=== PATIENT | male | born 1950 | race Caucasian/White ===

== ENCOUNTER 2017-07-02 15:11 | Inpatient (IN) | payer OTHER, MEDICARE ==
[~2017-07-02] VITALS: Ht 167.6 cm; Wt 63.6 kg
[2017-07-02 15:10] VITALS: BP 116/66
[2017-07-02] MEDS ORDERED: hydrALAzine 20 MG/ML, 1ML IVPush PRN (17:00)
[2017-07-02] MEDS ORDERED: TEMAZEPAM 15 MG CAPSULE PO PRN (17:00)
[2017-07-02] MEDS ORDERED: ACETAMINOPHEN 325 MG TABLET PO PRN ×2 (17:00→18:30)
[2017-07-02] MEDS ORDERED: morphine SULFATE 10 MG/ML, 1ML IVPush PRN (17:00)
[2017-07-02] MEDS ORDERED: ONDANSETRON 2MG/ML, 2ML IVPush PRN (17:00)
[2017-07-02] MEDS ORDERED: HYDROcodone/APAP 5/325 TABLET PO PRN (17:00)
[2017-07-02] MEDS ORDERED: CHLORHEXIDINE MOUTHWASH 15 ML UDC MM PRN (17:30)
[2017-07-02 18:00] LABS: HEMATOCRIT 45.2 % (39.2-51.8); HEMOGLOBIN 15.6 g/dL (13.7-18.0); WHITE BLOOD COUNT 6.2 x10^3/uL (3.4-10)
[2017-07-02 18:03] LABS: ASPARTATE AMINO TRANSFERASE 22 U/L (15-37); BLOOD UREA NITROGEN 19 mg/dL (7-18)
[2017-07-02] MEDS ORDERED: ZOLPIDEM 5MG TABLET PO PRN (18:30)
[2017-07-02 18:35] VITALS: BP 100/65
[2017-07-02] MEDS ORDERED: SODIUM CHLORIDE FLUSH 10ML SYR IVF SCH ×2 (21:00)
[2017-07-02] MEDS: MUPIROCIN OINT 2%, 22GM TP SCH (22:16)
[2017-07-02] MEDS: CHLORHEXIDINE MOUTHWASH 15 ML UDC MM PRN (22:16)
[2017-07-03 03:54] VITALS: BP_SYST 108; BP_SYST 111; BP_DIAS 62; BP_DIAS 67
[2017-07-03 04:22] LABS: HEMATOCRIT 44.3 % (39.2-51.8); HEMOGLOBIN 15.3 g/dL (13.7-18.0); WHITE BLOOD COUNT 6.2 x10^3/uL (3.4-10)
[2017-07-03] MEDS: MUPIROCIN OINT 2%, 22GM TP SCH (04:45)
[2017-07-03] MEDS: CHLORHEXIDINE MOUTHWASH 15 ML UDC MM PRN (04:45)
[2017-07-03 07:26] VITALS: BP 110/67
[2017-07-03] MEDS ORDERED: PHENYLEPHRINE 10 MG in SODIUM CHLORIDE 0.9% 249 ML IV PRN ×2 (07:30→10:55)
[2017-07-03] MEDS ORDERED: ALBUMIN HUMAN 5% 500 ML IV PRN (07:30)
[2017-07-03] MEDS ORDERED: VANCOMYCIN PMX 1GM/200ML 200 ML IVPB PRN (07:30)
[2017-07-03] MEDS ORDERED: DEXMEDETOMIDINE 200 MCG in SODIUM CHLORIDE 0.9% 48 ML IV SCH (07:30)
[2017-07-03] MEDS ORDERED: EPINEPHRINE 2 MG in SODIUM CHLORIDE 0.9% 248 ML IV SCH (07:30)
[2017-07-03] MEDS ORDERED: REGULAR INSULIN 62.5 UNITS in SODIUM CHLORIDE 0.9% 249.375 ML IV PRN ×2 (07:30→10:55)
[2017-07-03] MEDS ORDERED: POTASSIUM CHLORIDE 80 MEQ, SODIUM BICARBONATE 8.4% 10 MEQ, MAGNESIUM SULFATE 0.5 GM, LI... IV PRN (07:30)
[2017-07-03] MEDS ORDERED: MANNITOL PMX 20% 500 ML IVPB PRN (07:30)
[2017-07-03] MEDS ORDERED: CEFUROXIME 1.5 GM in SODIUM CHLORIDE 0.9% 50 ML IVPB PRN (07:30)
[2017-07-03] MEDS ORDERED: FENTANYL PF 1000 MCG/20ML ONE (07:35)
[2017-07-03] MEDS ORDERED: MIDAZOLAM 10MG/2 ML ONE (07:35)
[2017-07-03] MEDS ORDERED: TRANEXAMIC ACID 100 MG/ML, 10ML ONE ×6 (07:39)
[2017-07-03] MEDS ORDERED: ROCURONIUM 10 MG/ML,10ML ONE (07:39)
[2017-07-03] MEDS ORDERED: PROPOFOL 10 MG/ML, 20ML ONE (07:39)
[2017-07-03] MEDS: DOCUSATE 100 MG CAPSULE PO SCH ×2 (09:00→20:16)
[2017-07-03] MEDS ORDERED: PROTAMINE SULFATE 10 MG/ML, 25ML ONE ×3 (09:40→09:44)
[2017-07-03] MEDS ORDERED: CALCIUM CHLORIDE 10%, 10ML SYR ONE (10:28)
[2017-07-03] MEDS ORDERED: VASOPRESSIN 20 UNIT/ML, 1ML ONE (10:40)
[2017-07-03] MEDS ORDERED: DOBUTAMINE 250 MG in SODIUM CHLORIDE 0.9% 230 ML IV PRN (10:55)
[2017-07-03] MEDS ORDERED: NITROGLYCERIN/D5W PMX 240 ML IV PRN (10:55)
[2017-07-03] MEDS ORDERED: VASOPRESSIN 50 UNIT in SODIUM CHLORIDE 0.9% 250 ML IV PRN (10:55)
[2017-07-03] MEDS ORDERED: DEXMEDETOMIDINE 200 MCG in SODIUM CHLORIDE 0.9% 48 ML IV PRN (10:55)
[2017-07-03] MEDS ORDERED: SODIUM CHLORIDE 0.9% 1,000 ML IV PRN (10:55)
[2017-07-03] MEDS ORDERED: MIDAZOLAM 1 MG/ML, 5ML IVPush PRN (11:00)
[2017-07-03] MEDS ORDERED: ACETAMINOPHEN 650 MG SUPP PR PRN (11:00)
[2017-07-03] MEDS ORDERED: GLUCAGON 1 MG IM PRN (11:00)
[2017-07-03] MEDS ORDERED: DEXTROSE 4 GM TAB.CHEW PO PRN (11:00)
[2017-07-03] MEDS ORDERED: FENTANYL PF 100 MCG/2ML IVPush PRN (11:00)
[2017-07-03] MEDS: INSULIN ASPART 100 UNITS/ML, PEN SQ-INSULIN SCH ×4 (11:00→22:00)
[2017-07-03] MEDS ORDERED: LACTATED RINGERS 1,000 ML IV PRN (11:00)
[2017-07-03] MEDS ORDERED: HYDROcodone/APAP 5/325 TABLET PO PRN (11:00)
[2017-07-03] MEDS ORDERED: SODIUM BICARB 8.4%, 50ML SYRINGE IV PRN (11:00)
[2017-07-03] MEDS ORDERED: PROCHLORPERAZINE 5 MG/ML, 2ML IVPush PRN (11:00)
[2017-07-03] MEDS ORDERED: DEXTROSE 50%, 50ML SYRINGE IVPush PRN (11:00)
[2017-07-03] MEDS ORDERED: BISACODYL 10 MG SUPP PR PRN (11:00)
[2017-07-03] MEDS ORDERED: INSULIN REGULAR 100 UNITS/ML, 3ML VIAL IVPush PRN (11:00)
[2017-07-03] MEDS ORDERED: morphine SULFATE 10 MG/ML, 1ML IVPush PRN (11:00)
[2017-07-03] MEDS ORDERED: MAGNESIUM SULFATE 1 GM in SODIUM CHLORIDE 0.9% 50 ML IVPB SCH (11:00)
[2017-07-03] MEDS ORDERED: ONDANSETRON 2MG/ML, 2ML IVPush PRN (11:00)
[2017-07-03] MEDS ORDERED: EPINEPHRINE 2 MG in SODIUM CHLORIDE 0.9% 248 ML IV PRN (11:00)
[2017-07-03] MEDS ORDERED: ACETAMINOPHEN 325 MG TABLET PO PRN (11:00)
[2017-07-03] MEDS ORDERED: BISACODYL 5 MG EC TABLET PO PRN (11:00)
[2017-07-03] MEDS ORDERED: SODIUM BICARB 8.4%, 50ML SYRINGE ONE ×2 (11:11→11:12)
[2017-07-03] MEDS ORDERED: LIDOCAINE 2% 100MG/5ML SYRINGE ONE (11:13)
[2017-07-03] MEDS ORDERED: ALBUMIN HUMAN 25% 50 ML ONE (11:14)
[2017-07-03] MEDS ORDERED: HEPARIN 1,000 UNITS/ML, 30ML ONE ×3 (11:14→11:15)
[2017-07-03 11:30] LABS: ABG COLLECTION SITE ARTERIAL LINE
[2017-07-03 11:33] LABS: FIO2 70 %
[2017-07-03] MEDS: KSCALE TO 4.5 IV SCH ×3 (12:17→23:00)
[2017-07-03] MEDS: MAGNESIUM SULFATE 1 GM in SODIUM CHLORIDE 0.9% 100 ML IVPB SCH (12:39)
[2017-07-03] MEDS: CHLORHEXIDINE MOUTHWASH 15 ML UDC MM SCH ×2 (14:15→22:32)
[2017-07-03] MEDS: OXYcodone IR 5MG TABLET PO PRN ×2 (15:59→18:38)
[2017-07-03 17:03] LABS: HEMATOCRIT 38.4 % (39.2-51.8); HEMOGLOBIN 13.1 g/dL (13.7-18.0)
[2017-07-03] MEDS: CEFUROXIME 1.5 GM in SODIUM CHLORIDE 0.9% 50 ML IVPB SCH (17:50)
[2017-07-03] MEDS: VANCOMYCIN 1,000 MG in SODIUM CHLORIDE 0.9% 100 ML IVPB SCH (20:14)
[2017-07-03] MEDS: MUPIROCIN OINT 2%, 22GM NAS SCH (20:15)
[2017-07-03] MEDS: SODIUM CHLORIDE FLUSH 10ML SYR IVF SCH (20:16)
[2017-07-03] MEDS: HYDROcodone/APAP 10/325 MG TABLET PO PRN (22:26)
[2017-07-03 22:44] LABS: HEMATOCRIT 38.9 % (39.2-51.8); HEMOGLOBIN 13.3 g/dL (13.7-18.0)
[2017-07-04] MEDS: INSULIN ASPART 100 UNITS/ML, PEN SQ-INSULIN SCH ×9 (02:00→21:53)
[2017-07-04] MEDS: HYDROcodone/APAP 10/325 MG TABLET PO PRN ×4 (04:43→22:04)
[2017-07-04 05:00] VITALS: BP 103/61
[2017-07-04] MEDS: KSCALE TO 4.5 IV SCH (05:00)
[2017-07-04 05:12] LABS: BLOOD UREA NITROGEN 14 mg/dL (7-18)
[2017-07-04 05:18] LABS: HEMATOCRIT 38.7 % (39.2-51.8); HEMOGLOBIN 13.3 g/dL (13.7-18.0); WHITE BLOOD COUNT 13.5 x10^3/uL (3.4-10)
[2017-07-04 05:34] LABS: ABG COLLECTION SITE LEFT RADIAL; COLLATERAL CIRCULATION TESTING NORMAL
[2017-07-04] MEDS: VANCOMYCIN 1,000 MG in SODIUM CHLORIDE 0.9% 100 ML IVPB SCH (07:33)
[2017-07-04] MEDS: CEFUROXIME 1.5 GM in SODIUM CHLORIDE 0.9% 50 ML IVPB SCH (07:57)
[2017-07-04] MEDS ORDERED: TEMAZEPAM 15 MG CAPSULE PO PRN (08:30)
[2017-07-04] MEDS ORDERED: ALBUMIN HUMAN 5% 500 ML IV ONE (08:30)
[2017-07-04] MEDS ORDERED: MAGNESIUM HYDROXIDE 8%, 30ML UDC PO PRN (08:30)
[2017-07-04] MEDS: WARFARIN BIOPROSTHETIC VALVE PROTOCOL 2-3 XX SCH (09:00)
[2017-07-04] MEDS: SODIUM CHLORIDE FLUSH 10ML SYR IVF SCH ×3 (09:26→22:04)
[2017-07-04] MEDS: ASPIRIN 81 MG TABLET EC PO SCH (09:26)
[2017-07-04] MEDS: DOCUSATE 100 MG CAPSULE PO SCH ×2 (09:26→21:53)
[2017-07-04] MEDS: MUPIROCIN OINT 2%, 22GM NAS SCH ×2 (09:27→21:54)
[2017-07-04] MEDS: CHLORHEXIDINE MOUTHWASH 15 ML UDC MM SCH ×2 (11:14→21:54)
[2017-07-04] MEDS: MAGNESIUM SULFATE 1 GM in SODIUM CHLORIDE 0.9% 100 ML IVPB SCH (12:39)
[2017-07-04 17:38] VITALS: BP 104/74
[2017-07-04] MEDS ORDERED: WARFARIN 5 MG TABLET PO-COUM ONE (18:00)
[2017-07-04 20:42] VITALS: BP 101/70
[2017-07-05] MEDS: INSULIN ASPART 100 UNITS/ML, PEN SQ-INSULIN SCH ×6 (01:00→20:30)
[2017-07-05 01:30] VITALS: BP 98/64
[2017-07-05 04:26] LABS: HEMATOCRIT 35.4 % (39.2-51.8)
[2017-07-05 04:40] LABS: BLOOD UREA NITROGEN 19 mg/dL (7-18)
[2017-07-05] MEDS: WARFARIN BIOPROSTHETIC VALVE PROTOCOL 2-3 XX SCH (08:30)
[2017-07-05 08:40] VITALS: BP 120/77
[2017-07-05] MEDS: DOCUSATE 100 MG CAPSULE PO SCH ×2 (08:47→20:29)
[2017-07-05] MEDS: MUPIROCIN OINT 2%, 22GM NAS SCH ×2 (08:47→20:29)
[2017-07-05] MEDS: SODIUM CHLORIDE FLUSH 10ML SYR IVF SCH ×4 (08:47→21:00)
[2017-07-05] MEDS: ASPIRIN 81 MG TABLET EC PO SCH (08:47)
[2017-07-05] MEDS: HYDROcodone/APAP 10/325 MG TABLET PO PRN ×2 (08:47→14:42)
[2017-07-05] MEDS ORDERED: SODIUM CHLORIDE 0.9%, 500ML IVBOLUS ONE ×2 (09:00)
[2017-07-05] MEDS: CHLORHEXIDINE MOUTHWASH 15 ML UDC MM SCH ×2 (12:18→22:16)
[2017-07-05] MEDS: MAGNESIUM SULFATE 1 GM in SODIUM CHLORIDE 0.9% 100 ML IVPB SCH (12:18)
[2017-07-05 12:37] VITALS: BP 103/67
[2017-07-05 12:42] VITALS: BP 104/63
[2017-07-05] MEDS ORDERED: AMIODARONE 900 MG in DEXTROSE 5% 482 ML IV PRN (13:30)
[2017-07-05] MEDS ORDERED: AMIODARONE 150 MG in DEXTROSE 5% 100 ML IV ONE ×3 (13:30→18:30)
[2017-07-05] MEDS ORDERED: FILTER 0.22 MICRON FOR AMIODARONE IV PRN (13:30)
[2017-07-05 17:57] VITALS: BP 112/80
[2017-07-05] MEDS ORDERED: WARFARIN 5 MG TABLET PO-COUM ONE (18:00)
[2017-07-05] MEDS ORDERED: METOPROLOL TARTRATE 25 MG TABLET ONE (18:06)
[2017-07-05] MEDS ORDERED: METOPROLOL TARTRATE 25 MG TABLET PO ONE (18:30)
[2017-07-05 20:10] VITALS: BP 116/70
[2017-07-05] MEDS: OXYcodone IR 5MG TABLET PO PRN (22:16)
[2017-07-06 02:00] VITALS: BP 105/70
[2017-07-06 06:22] LABS: HEMOGLOBIN 11.6 g/dL (13.7-18.0); WHITE BLOOD COUNT 9.8 x10^3/uL (3.4-10)
[2017-07-06 06:32] LABS: BLOOD UREA NITROGEN 21 mg/dL (7-18)
[2017-07-06] MEDS: INSULIN ASPART 100 UNITS/ML, PEN SQ-INSULIN SCH ×4 (07:00→22:27)
[2017-07-06 07:31] VITALS: BP 112/73
[2017-07-06] MEDS: SODIUM CHLORIDE FLUSH 10ML SYR IVF SCH ×4 (08:32→22:27)
[2017-07-06] MEDS: DOCUSATE 100 MG CAPSULE PO SCH ×2 (08:33→22:27)
[2017-07-06] MEDS: MUPIROCIN OINT 2%, 22GM NAS SCH ×2 (08:33→22:26)
[2017-07-06] MEDS: WARFARIN BIOPROSTHETIC VALVE PROTOCOL 2-3 XX SCH (08:33)
[2017-07-06] MEDS: ASPIRIN 81 MG TABLET EC PO SCH (08:34)
[2017-07-06] MEDS: AMIODARONE 200 MG TABLET PO SCH ×2 (11:36→22:27)
[2017-07-06] MEDS: CHLORHEXIDINE MOUTHWASH 15 ML UDC MM SCH ×2 (11:37→22:26)
[2017-07-06 12:52] VITALS: BP 101/68
[2017-07-06] MEDS ORDERED: AMIODARONE 900 MG in DEXTROSE 5% 482 ML IV PRN (13:30)
[2017-07-06] MEDS ORDERED: WARFARIN 1 MG TABLET PO-COUM ONE (18:00)
[2017-07-06 18:55] VITALS: BP 100/66
[2017-07-06 22:25] VITALS: BP 110/75
[2017-07-07 00:39] VITALS: BP 98/64
[2017-07-07 06:21] LABS: HEMATOCRIT 34.7 % (39.2-51.8); HEMOGLOBIN 11.6 g/dL (13.7-18.0); WHITE BLOOD COUNT 7.2 x10^3/uL (3.4-10)
[2017-07-07 06:27] LABS: BLOOD UREA NITROGEN 20 mg/dL (7-18)
[2017-07-07] MEDS: INSULIN ASPART 100 UNITS/ML, PEN SQ-INSULIN SCH ×2 (07:00→11:00)
[2017-07-07 07:30] VITALS: BP 104/67
[2017-07-07] MEDS ORDERED: HOLD COUMADIN MC PRN (08:00)
[2017-07-07] MEDS: WARFARIN BIOPROSTHETIC VALVE PROTOCOL 2-3 XX SCH (09:00)
[2017-07-07] MEDS: DOCUSATE 100 MG CAPSULE PO SCH (09:00)
[2017-07-07] MEDS: SODIUM CHLORIDE FLUSH 10ML SYR IVF SCH ×2 (09:00→09:42)
[2017-07-07] MEDS: AMIODARONE 200 MG TABLET PO SCH (09:41)
[2017-07-07] MEDS: MUPIROCIN OINT 2%, 22GM NAS SCH (09:42)
[2017-07-07] MEDS: ASPIRIN 81 MG TABLET EC PO SCH (09:42)
[2017-07-07] MEDS ORDERED: WARF1TAB PO (10:00)
[2017-07-07] MEDS ORDERED: ASPI-621 PO (10:00)
[2017-07-07] MEDS: CHLORHEXIDINE MOUTHWASH 15 ML UDC MM SCH (11:00)
[2017-07-07] MEDS ORDERED: AMIO400T4 PO (12:22)
== END 2017-07-07 13:04 | disposition home or self-care (01) | DRG 219 ==
LOC: 5SO 15:11 → CSU 07-03 07:49 → 5SO 07-04 17:16 → DCLOUNGE 07-07 12:32
PROVIDERS: ADMIT Thoracic Surgery (Cardiothoracic Vascular Surgery); ATTEND Internal Medicine
PROC: 02RX0JZ Replacement of Thoracic Aorta, Ascending/Arch with Synthetic Substitute, Open Approach (ICD-10-PCS; 2017-07-03)
PROC: 5A1221Z Performance of Cardiac Output, Continuous (ICD-10-PCS; 2017-07-03)
PROC: B246ZZ4 Ultrasonography of Right and Left Heart, Transesophageal (ICD-10-PCS; 2017-07-03)
PROC: 0BH17EZ Insertion of Endotracheal Airway into Trachea, Via Natural or Artificial Opening (ICD-10-PCS; 2017-07-03)
PROC: 5A1935Z Respiratory Ventilation, Less than 24 Consecutive Hours (ICD-10-PCS; 2017-07-03)
PROC: 02RF0JZ Replacement of Aortic Valve with Synthetic Substitute, Open Approach (ICD-10-PCS; principal; 2017-07-03 08:00)
DX: I35.2 Nonrheumatic aortic (valve) stenosis with insufficiency (principal); J96.00 Acute respiratory failure, unspecified whether with hypoxia or hypercapnia; I48.92 Unspecified atrial flutter; J98.11 Atelectasis; I48.91 Unspecified atrial fibrillation; I71.2 Thoracic aortic aneurysm, without rupture; E78.5 Hyperlipidemia, unspecified; I10 Essential (primary) hypertension; I70.0 Atherosclerosis of aorta; Z51.5 Encounter for palliative care; Z86.79 Personal history of other diseases of the circulatory system; Z87.891 Personal history of nicotine dependence; Z92.21 Personal history of antineoplastic chemotherapy; Z95.3 Presence of xenogenic heart valve
CPT/HCPCS: 36415; 36600; 71010; 71020; 80048; 80053; 80061; 81003; 82040; 82330; 82800; 82803; 82810; 82947; 82962; 83036; 83735; 84100; 84132; 84295; 84439; 84443; 85014; 85018; 85025; 85049; 85347; 85610; 85730; 86850; 86900; 86923; 87081; 88304; 88305; 93005; 93312; 93321; 93325; 94002; 94150; C1768; J0697; J1644; J1815; J2250; J2704; J2720; J3010; J3370; J3475; J3480; J3490; P9045; P9047; C1751; C1760; C1781; J0171; J0282; J2270; J2370; J7040; J7050; J7060